=== PATIENT | female | born 1970 | race American Indian/Alaskan Native ===

== ENCOUNTER 2020-08-31 15:13 | Emergency (ER) | payer SELFPAY ==
--- NOTE | 2020-08-31 15:18 | Event Note ---
ED Screening Note ED Screening Note: sp mechanical fall co ankle pain pos swelling This initial assessment/diagnostic orders/clinical plan/treatment(s) is/are subject to change based on patients health status, clinical progression and re- assessment by fellow clinical providers in the ED. Further treatment and workup at subsequent clinical providers discretion. Patient/guardian urged not to elope from the ED as their condition may be serious if not clinically assessed and managed. Initial orders include: xr ro fx
[2020-08-31 15:19] VITALS: BP 188/97
--- NOTE | 2020-08-31 15:43 | XRay Report ---
LEFT ANKLE 3 VIEWS INDICATION / CLINICAL INFORMATION: pain sp fall. COMPARISON: None available. FINDINGS: Mildly displaced spiral fracture of the distal fibula. Small corticated cyst in the distal tibia medi ally. Small calcaneal spurs. No other significant skeletal abnormality Signer Name: Isaías Juarez MD FACKacey Signed: 08/31/2020 3:39 PM Workstation Name: [id number]
[2020-08-31] MEDS ORDERED: HYDROcodone/ACETAMINOPHEN 10-325MG TAB PO ONE (15:45)
--- NOTE | 2020-08-31 15:50 | Emergency Department Report ---
ED Lower Extremity HPI - General Chief Complaint: Extremity Injury, Lower Stated Complaint: LT LEG INJURY/FALL Time Seen by Provider: 08/31/20 15:17 Source: patient Mode of arrival: Ambulatory Limitations: No Limitations - History of Present Illness Initial Comments: 50 YO AA FEMALE COMES TO ER SP GLF AFTER A SLIP AT WORK. CO L ANKLE PAIN AND SWELLING Complaint: ankle injury -: Sudden, hour(s) Place: work Severity: severe Worsens With: movement Context: fall - Related Data Previous Rx's Medication Instructions Recorded Last Taken Type Acetaminophen [Acetaminophen TAB] 1,000 mg PO Q6HR PRN #60 tablet 08/31/20 Unknown Rx Ibuprofen [Motrin] 800 mg PO Q8HR PRN #30 tablet 08/31/20 Unknown Rx traMADoL [Ultram] 50 mg PO Q6HR PRN #12 tablet 08/31/20 Unknown Rx Allergies Allergy/AdvReac Type Severity Reaction Status Date / Time No Known Allergies Allergy Unverified 08/31/20 15:16 ED Review of Systems ROS: Stated complaint: LT LEG INJURY/FALL Other details as noted in HPI Comment: All other systems reviewed and negative ED Past Medical Hx - Past Medical History Previous Medical History?: Yes Hx Asthma: Yes - Surgical History Past Surgical History?: No - Family History Family history: no significant - Social History Smoking Status: Never Smoker Substance Use Type: Alcohol - Medications Home Medications: Home Medications Medication Instructions Recorded Confirmed Last Taken Type Acetaminophen [Acetaminophen TAB] 1,000 mg PO Q6HR PRN #60 tablet 08/31/20 Unknown Rx Ibuprofen [Motrin] 800 mg PO Q8HR PRN #30 tablet 08/31/20 Unknown Rx traMADoL [Ultram] 50 mg PO Q6HR PRN #12 tablet 08/31/20 Unknown Rx ED Physical Exam - General Limitations: No Limitations General appearance: alert, in no apparent distress - Head Head exam: Present: atraumatic, normocephalic - Eye Eye exam: Present: normal appearance - ENT ENT exam: Present: mucous membranes moist - Neck Neck exam: Present: normal inspection - Respiratory Respiratory exam: Present: normal lung sounds bilaterally. Absent: respiratory distress - Cardiovascular Cardiovascular Exam: Present: regular rate, normal rhythm. Absent: systolic murmur, diastolic murmur, rubs, gallop - GI/Abdominal GI/Abdominal exam: Present: soft, normal bowel sounds - Extremities Exam Extremities exam: Present: normal inspection - Expanded Lower Extremity Exam Left Lower Leg exam: Present: normal inspection Ankle exam: Present: tenderness, swelling. Absent: laceration, ecchymosis - Back Exam Back exam: Present: normal inspection - Neurological Exam Neurological exam: Present: alert, oriented X3 - Psychiatric Psychiatric exam: Present: normal affect, normal mood - Skin Skin exam: Present: warm, dry, intact, normal color. Absent: rash ED Course Vital Signs 08/31/20 15:18 Temperature 98 F Pulse Rate 79 Respiratory 16 Rate Blood Pressure 188/97 [Right] O2 Sat by Pulse 98 Oximetry ED Lower Extremity MDM - Radiology Data Radiology results: report reviewed, image reviewed fx - Medical Decision Making SPLINT CRUTCHES MEDICATED FOR PAIN DC HOME WITH ORTHO FOLLOW UP PT UNDERSTANDS DC POC INCLUDING ORTHO MD FOLLOW UP DANELLE Vital Signs 08/31/20 15:18 Temperature 98 F Pulse Rate 79 Respiratory 16 Rate Blood Pressure 188/97 [Right] O2 Sat by Pulse 98 Oximetry - Differential Diagnosis ro fx Critical care attestation.: If time is entered above; I have spent that time in minutes in the direct care of this critically ill patient, excluding procedure time. ED Disposition Clinical Impression: Fibula fracture, Fall Disposition: DC-01 TO HOME OR SELFCARE Is pt being admited?: No Does the pt Need Aspirin: No Condition: Stable Instructions: Tibial and Fibular Fractures Additional Instructions: ICE REST ELEVATE MOTRIN OR TYLENOL FOR MILD PAIN ULTRAM FOR SEVERE PAIN CALL DR KENT AND MAKE FOLLOW UP APPNT DANELLE REFERRAL BELOW LEAVE SPLINT ON USE CRUTCHES TO KEEP WEIGHT OFF THE LEG Prescriptions: Acetaminophen [Acetaminophen TAB] 1,000 mg PO Q6HR PRN #60 tablet PRN Reason: Pain, Mild (1-3) Ibuprofen [Motrin] 800 mg PO Q8HR PRN #30 tablet PRN Reason: Pain, Moderate (4-6) traMADoL [Ultram] 50 mg PO Q6HR PRN #12 tablet PRN Reason: Pain Referrals: RODRIGUEZ KENT MD [Staff Physician] - 3-5 Days Time of Disposition: 15:48
== END 2020-08-31 16:15 | disposition home or self-care (01) ==
LOC: ED 15:13
DX: S82.402A Unspecified fracture of shaft of left fibula, initial encounter for closed fracture (principal); J45.909 Unspecified asthma, uncomplicated; Z79.899 Other long term (current) drug therapy; W18.30XA Fall on same level, unspecified, initial encounter; Y93.89 Activity, other specified; Y92.69 Other specified industrial and construction area as the place of occurrence of the external cause; Y99.8 Other external cause status
CPT/HCPCS: 99283